=== PATIENT | female | born 1945 | race Caucasian/White ===

== ENCOUNTER → 2019-12-26 13:39 | Outpatient (CLI) | payer MEDICARE, OTHER, SELFPAY ==
--- NOTE | 2019-12-26 13:49 | XR_ITS ---
PROCEDURE: XR FOOT WT BEARING LT 3V CLINICAL INDICATION: pain COMPARISON: No exams were available for comparison FINDINGS: No fracture or dislocation. No lytic or blastic change. There is normal mineralization. There are moderate osteoarthritic changes at the 1st MTP joint. Mild osteoarthritis at the talonavicular and navicular cuneiform joint Other findings:Bony hypertrophy noted at the distal aspect of the 1st metatarsal. There is a small calcaneal spur. 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
--- NOTE | 2019-12-26 13:49 | XR_ITS ---
PROCEDURE: XR FOOT WT BEARING RT 3V CLINICAL INDICATION: pain Bunion COMPARISON: No exams were available for comparison FINDINGS: No fracture or dislocation. No lytic or blastic change. There is normal mineralization. There are severe osteoarthritic changes at the 1st metatarsophalangeal junction with loss of joint space osteosclerosis and osteophyte formation with mild hypertrophic changes at the distal aspect of the 1st metatarsal. Other findings:There is a small calcaneal spur. There are mild degenerative changes at the talonavicular and navicular cuneiform joint IMPRESSION: Severe osteoarthritis at the 1st MTP joint with bony hypertrophy Dictated by: Glenroy Glass MD 12/26/2019 17:36 Glenroy Glass MD in [place] 12/26/2019 17:36
== END ==
PROVIDERS: PCP Nurse Practitioner Family; Visit Provider Podiatrist
DX: M79.671 Pain in right foot (principal); M79.672 Pain in left foot
CPT/HCPCS: 73630

== ENCOUNTER → 2020-07-09 10:09 | Outpatient (POV) | payer MEDICARE, OTHER, SELFPAY ==
[2020-07-09 10:29] VITALS: BP 114/74; PULSE 63; RESP 20; TEMP 36.4; O2SAT 93; BMI 29.5
--- NOTE | 2020-07-09 16:00 | HMH.PMCON ---
Assessment and Plan (1) Postlaminectomy syndrome Status: Acute Category: Medical Code(s): M96.1 - Postlaminectomy syndrome, not elsewhere classified (2) Degenerative joint disease (DJD) of lumbar spine Status: Acute Category: Medical Code(s): M47.816 - Spondylosis without myelopathy or radiculopathy, lumbar region (3) Lumbar radiculopathy Status: Acute Category: Medical Code(s): M54.16 - Radiculopathy, lumbar region - Assessment and plan all Dx Assessment and Plan for all problems:: We will get some diagnostic imaging we will order a MRI of her lumbar spine to help determine pathology. We will follow up afterwards to move forward with the plan of care. Patient may be a candidate for injective therapy. I will follow-up with her after this reassess her symptoms at that time she has been instructed to call the office if she has any issues prior to her next appointment. Dr. Allan has reviewed this note and agrees with this plan of care. This note was dictated using voice recognition software and may contain errors or omissions HPI - Data of Consult Requesting Physician: Mayra Vicente APRN Primary Care Provider: Karoline Negron APRN - Consult Narrative Reason for consult: Back pain History of present illness: Ms. Storm is a 75 year old female who presents today for consultation regards to her low back and leg pain. Patient has low back and left leg pain for over 10 years now. She rates it a 10 out of 10 and states that it is impacting her every day movement and life. Patient has had multiple back surgeries in the past. Patient has had no recent MRI. Patient has increasing pain with all movement. She is on tramadol and gabapentin which does decrease her pain somewhat however she does have numbness and tingling in her left lower extremity that is not affected by this. She has tried and failed stretching therapies and has had no relief. CC: Mayra Vicente APRN [facility] History I have reviewed the patient's past medical history: Yes Medical History: Reports:: Hyperlipidemia, Hypertension Denies:: Cancer, Diabetes Mellitus Type 1, Diabetes Mellitus Type 2, Internal Pacemaker, Lung Disease, MRSA, Seizures *Have you ever received a pneumonia vaccine?: Yes *Have you received a flu vaccine this season?: Yes Other Medical History: Reports: Thyroid Disease Other Surgeries: Yes: Cholecystectomy, Hysterectomy-Total, Thyroidectomy, Other (lumbar back surgery x2). No: Pacemaker Amputation: No Fractures: No - *Social History Smoking Status: Current every day smoker Tobacco Type: cigarettes # Packs/Day (cigarettes): 1 Alcohol Intake: never *Occupational Status:: retired Housing: house Household Members: other *Travel in the last 8 weeks: None Family Hx:: Non-contributory Review of Systems - Review of Systems ROS General: no recent weight change, no fever, no sleep disturbances Respiratory: no cough, no shortness of air, no recurring pulmonary infections Cardiovascular/Peripheral Vascular: No chest pain, No palpitations, no edema, no shortness of breath. Gastrointestinal: no new onset incontinence, normal bowel movements reported Genitourinary: no new onset incontinence Musculoskeletal: Back pain, leg pain Psychiatric: normal mood/ affect Neurological: [denies new onset weakness in extremities], [denies new onset balance issues] Meds Home Medications Medication Instructions Recorded Confirmed Type Alendronate Sodium [Alendronate 35 mg PO WEEKLY 10/17/17 07/09/20 History 35mg Tablet] Aspirin 81 mg PO DAILY 10/17/17 07/09/20 History Atenolol/Chlorthalidone 1 each PO DAILY 10/17/17 07/09/20 History [Atenolol-Chlorthalidone 50-25] Gabapentin [Gabapentin 300mg Cap] 600 mg PO BID 10/17/17 07/09/20 History Simvastatin [Zocor] 20 mg PO DAILY 10/17/17 07/09/20 History cephalexin 250 mg capsule 250 mg PO DAILY 12/26/19 07/09/20 History diclofenac sodium 1 % topical gel 4 g TOPI
== END ==
PROVIDERS: PCP Nurse Practitioner Family; Visit Provider Clinical Nurse Specialist Family Health
DX: M96.1 Postlaminectomy syndrome, not elsewhere classified (principal); M47.816 Spondylosis without myelopathy or radiculopathy, lumbar region; M54.16 Radiculopathy, lumbar region
CPT/HCPCS: 99202; G0463

== ENCOUNTER → 2020-07-14 12:38 | Outpatient (CLI) | payer MEDICARE, OTHER, SELFPAY ==
--- NOTE | 2020-07-14 12:44 | MR_ITS ---
PROCEDURE: MR LUMBAR SPINE WO CON CLINICAL INDICATION: LBP DOWN LEFT HIP Pt c/o lbp radiating down the left hip. COMPARISON: No exams were available for comparison TECHNIQUE: Standard multiplanar multiecho sequences are performed without contrast. 3-D MIP and myelographic images are also rendered and reviewed FINDINGS: There is normal alignment. The spinal cord ends at L1 level. T10-T11: Minimal degenerative disc disease with minimal bulging disc. T12-L1: Minimal bulging disc L1-L2: Mild concentric bulging disc with mild degenerative disc disease. Anterior osteophytes are present at this level. There is mild bilateral lateral recess and foraminal narrowing. L2-L3: Degenerative disc disease with type 3 endplate changes. There is retrolisthesis of L2 by 5 mm with bulging disc and facet hypertrophic changes which are greater on the right resulting in moderate right lateral recess narrowing and moderate to severe bilateral foraminal. Endplate osteophytes are present with the bulging disc. L3-L4: Facet and ligamentum hypertrophy with mild bilateral foraminal narrowing. L4-5: Mild concentric bulging disc. There is 2 mm anterolisthesis of L4. There is severe ligamentum and facet hypertrophy with bilateral lateral recess narrowing which is greater on the right. There is a small left paracentral and foraminal disc osteophyte complex which does abut the left L5 nerve root. There is moderate to severe left-sided foraminal narrowing. L5-S1: Degenerative disc disease with mild retrolisthesis of L5 of 4-5 mm. There is bulging disc along with severe facet and ligamentum hypertrophic changes. There has been a prior laminotomy on the left at this level canal stenosis is present. There is severe bilateral lateral recess narrowing and severe bilateral foraminal narrowing from the facet hypertrophic change. No extruded herniated disc is evident. IMPRESSION: Abnormal MRI of the lumbar spine. There is multilevel lumbar spondylosis with degenerative disc disease, bulging disc, and facet and ligamentum hypertrophy with varying degrees of lateral recess and foraminal narrowing along with canal stenosis. Please see above for detailed description at each level. Dictated by: Glenroy Glass MD 07/16/2020 12:47 Glenroy Glass MD in [place] 07/16/2020 12:47
== END ==
PROVIDERS: PCP Nurse Practitioner Family; Visit Provider Clinical Nurse Specialist Family Health
DX: M54.5 Low back pain (principal)
CPT/HCPCS: 72148; 76376

== ENCOUNTER → 2020-07-20 10:11 | Outpatient (POV) | payer MEDICARE, OTHER, SELFPAY ==
[2020-07-20 10:42] VITALS: BP 132/71; PULSE 69; RESP 18; O2SAT 98; BMI 28.5
--- NOTE | 2020-07-20 11:18 | P.CONS_ITS ---
[facility] Pain Management SOAP Note Subjective:: Patient is a pleasant 75-year-old white female who presents today for follow-up after her lumbar MRI. Patient has quite a bit of pathology including degenerative disc disease, disc protrusions, and severe ligamentum and facet hypertrophy. Patient states that her pain is when she standing and walking. It is relieved by sitting and leaning forward she rates it a 9 out of 10. Patient is a potential candidate for minimally invasive lumbar decompression. Patient and I discussed epidural injections along with epidurogram to help determine if she will benefit from this therapy. She would like to move forward with that she is not on any anticoagulation therapy. She is quite active she is failed other conservative measures including over 6 months of medication management. ROS General: no recent weight change, no fever, no sleep disturbances Respiratory: no cough, no shortness of air, no recurring pulmonary infections Cardiovascular/Peripheral Vascular: No chest pain, No palpitations, no edema, no shortness of breath. Gastrointestinal: no new onset incontinence, normal bowel movements reported Genitourinary: no new onset incontinence Musculoskeletal: Back pain, leg pain Psychiatric: normal mood/ affect Neurological: Weakness bilateral lower extremities when standing and walking, [denies new onset balance issues] Objective:: Physical Exam General: Alert and oriented x3, no acute distress, pleasant and cooperative, [on room air] Lungs: Resps E/U, Symmetrical chest expansion, Eyes: PERRL Musculoskeletal: Flexion and extension of lumbar spine somewhat guarded secondary to pain, deep tendon reflexes normal, strength in upper and lower ext remities [5/5], [abnormal gait noted] Neurological: speech clear, 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 She has been instructed to call the office if she has any issues prior to her next appointment. I will follow-up with her afterwards reassess her symptoms at that time. Dr. Allan has reviewed this note and agrees with this plan of care. This note was dictated using voice recognition software and may contain errors or omissions [facility] History I have reviewed the patient's past medical history: Yes Medical History: Reports:: Hyperlipidemia, Hypertension Denies:: Cancer, Diabetes Mellitus Type 1, Diabetes Mellitus Type 2, Internal Pacemaker, Lung Disease, MRSA, Seizures *Have you ever received a pneumonia vaccine?: Yes *Have you received a flu vaccine this season?: Yes Other Medical History: Reports: Thyroid Disease Other Surgeries: Yes: Cholecystectomy, Hysterectomy-Total, Thyroidectomy, Other (lumbar back surgery x2). No: Pacemaker Amputation: No Fractures: No - *Social History Smoking Status: Current every day smoker Tobacco Type: cigarettes # Packs/Day (cigarettes): 1 Alcohol Intake: never *Occupational Status:: other Housing: house Household Members: other *Travel in the last 8 weeks: None Family Hx:: Non-contributory
== END ==
PROVIDERS: PCP Nurse Practitioner Family; Visit Provider Clinical Nurse Specialist Family Health
DX: M51.16 Intervertebral disc disorders with radiculopathy, lumbar region (principal); M96.1 Postlaminectomy syndrome, not elsewhere classified; M48.062 Spinal stenosis, lumbar region with neurogenic claudication
CPT/HCPCS: 99212; G0463

== ENCOUNTER 2020-07-31 11:39 | Day surgery (SDC) | payer MEDICARE, OTHER, SELFPAY ==
[2020-07-31 12:34] VITALS: BP 122/64; PULSE 73; RESP 20; O2SAT 94; BMI 28.3
--- NOTE | 2020-07-31 13:02 | HMH.PMPROC ---
- Procedure Date: 07/31/20 Time: 13:02 Anesthesiologist:: Cyrus Allan MD Complications:: None Pre-procedure Diagnosis:: Degenerative disc disease of lumbar spine with lumbar spinal stenosis and lumbar radicular symptoms with neurogenic claudication symptoms. Laminectomy syndrome lumbar spine Post-procedure Diagnosis:: Same Indications for Procedure:: The patient is a pleasant 75-year-old white female who we are treating for low back pain with lumbar radiculopathy symptoms and lumbar spinal stenosis with neurogenic claudication symptoms. She has increasing pain while standing and walking. Rest and leaning forward to relieve her pain symptoms. She does have lumbar spinal stenosis evident on MRI. We will do a lumbar epidural steroid injection with epidurogram to assess levels of stenosis and candidacy for minimally invasive lumbar decompression. Procedure Details:: Lumbar epidural steroid injection under fluoroscopy Informed consent was obtained and the risk and benefits of the procedure was explained to the patient. The patient was taken to the procedure room. The patient was placed prone on the procedure table. The patient was prepped and draped in sterile fashion. C-arm fluoroscopy was used to view the lumbar spine. Skin and subcutaneous tissues were anesthetized using lidocaine. I placed an 18-gauge epidural needle and advanced into the L4-L5 interspace using fluoroscopic guidance and [id number] to air. After confirmation of needle placement in the epidural space with dye I injected 2 mL of lidocaine 1.5% with Depo-Medrol 80 mg. Patient tolerated the procedure well with no complications. Plan and Disposition:: Based on epidurogram patient has had previous back surgery at L4-L5. I would like to hold off on doing the mild procedure until we see the results of the lumbar epidural steroid injection. She does have stenosis at 3 4 and L4-L5. We will follow-up with her and determine plan of treatment depending on efficacy of the lumbar epidural steroid injection.
[2020-07-31 13:12] VITALS: BP 135/78; BP 140/79; PULSE 89; RESP 18; O2SAT 98
[2020-07-31 13:20] VITALS: BP 131/65; PULSE 67; RESP 20; O2SAT 94
== END 2020-07-31 13:20 | disposition home or self-care (01) ==
LOC: SC.PAINP 11:41
PROVIDERS: PCP Nurse Practitioner Family; Visit Provider Anesthesiology
DX: M48.062 Spinal stenosis, lumbar region with neurogenic claudication (principal); M51.36 Other intervertebral disc degeneration, lumbar region; M96.1 Postlaminectomy syndrome, not elsewhere classified; E78.5 Hyperlipidemia, unspecified; I10 Essential (primary) hypertension
CPT/HCPCS: 62323; J1040; Q9966

== ENCOUNTER → 2020-08-27 11:10 | Outpatient (POV) | payer MEDICARE, OTHER, SELFPAY ==
[2020-08-27 11:52] VITALS: BP 132/71; PULSE 85; RESP 18; O2SAT 98; BMI 26.4
--- NOTE | 2020-08-27 12:25 | HMH.PAINSOAP ---
[facility] Pain Management SOAP Note Subjective:: Patient is a pleasant 75-year-old white female who presents today for follow-up after epidurogram. Patient was assessed for potential minimally invasive lumbar decompression. According to Dr. Nix note he would like to hold off doing a mild procedure. Patient did get 1 day relief with her epidural steroid injection. I discussed with her potentially finishing the course of 3 injections she is agreeable. Patient's tried and failed multiple therapies including medications, anti-inflammatories. Patient's pain is when she is standing or walking and it is alleviated by leaning forward and sitting down. ROS General: no recent weight change, no fever, no sleep disturbances Respiratory: no cough, no shortness of air, no recurring pulmonary infections Cardiovascular/Peripheral Vascular: No chest pain, No palpitations, no edema, no shortness of breath. Gastrointestinal: no new onset incontinence, normal bowel movements reported Genitourinary: no new onset incontinence Musculoskeletal: Back pain Psychiatric: normal mood/ affect Neurological: [denies new onset weakness in extremities], [denies new onset balance issues] Objective:: Physical Exam General: Alert and oriented x3, no acute distress, pleasant and cooperative, [on room air] Lungs: Resps E/U, Symmetrical chest expansion, Eyes: PERRL Musculoskeletal: Flexion and extension of lumbar spine somewhat guarded secondary to pain, deep tendon reflexes normal, strength in upper and lower extremities [5/5], antalgic gait noted Neurological: 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 We will complete her 3 epidural series. Patient's been instructed to call the office if she has any issues prior to her next appointment. Patient currently not on any anticoagulation therapy. Dr. Allan has reviewed this note and agrees with this plan of care. This note was dictated using voice recognition software and may contain errors or omissions [facility] History I have reviewed the patient's past medical history: Yes Medical History: Reports:: Hyperlipidemia, Hypertension Denies:: Cancer, Diabetes Mellitus Type 1, Diabetes Mellitus Type 2, Internal Pacemaker, Lung Disease, MRSA, Seizures *Have you ever received a pneumonia vaccine?: Yes *Have you received a flu vaccine this season?: Yes Other Medical History: Reports: Thyroid Disease Other Surgeries: Yes: Appendectomy, Cholecystectomy, Hysterectomy-Total, Thyroidectomy, Other (lumbar back surgery x2). No: Pacemaker Amputation: No Fractures: No - *Social History Smoking Status: Current every day smoker Tobacco Type: cigarettes # Packs/Day (cigarettes): 1 Alcohol Intake: never *Occupational Status:: other Housing: house Household Members: other *Travel in the last 8 weeks: None Family Hx:: Non-contributory
== END ==
PROVIDERS: PCP Nurse Practitioner Family; Visit Provider Clinical Nurse Specialist Family Health
DX: M51.16 Intervertebral disc disorders with radiculopathy, lumbar region (principal); M96.1 Postlaminectomy syndrome, not elsewhere classified; M48.062 Spinal stenosis, lumbar region with neurogenic claudication
CPT/HCPCS: 99212; G0463

== ENCOUNTER 2020-09-04 13:39 | Day surgery (SDC) | payer MEDICARE, OTHER, SELFPAY ==
[2020-09-04 13:55] VITALS: BP 99/40; PULSE 72; RESP 18; TEMP 37; O2SAT 93; BMI 28.3
[2020-09-04 14:27] VITALS: BP 128/88; BP 129/89; PULSE 74; PULSE 87; RESP 18; O2SAT 98
[2020-09-04 14:38] VITALS: BP 117/82; PULSE 70; RESP 20; O2SAT 93
--- NOTE | 2020-09-04 14:38 | HMH.PMPROC ---
- Procedure Date: 09/04/20 Time: 14:39 Anesthesiologist:: Cyrus Allan MD Complications:: None Pre-procedure Diagnosis:: Exam lumbar spine with lumbar radiculopathy symptoms and spinal stenosis Post-procedure Diagnosis:: Same Indications for Procedure:: Patient is a pleasant 75-year-old white female who we are treating for low back pain with lumbar radiculopathy symptoms. She did well for couple days after her last lumbar epidural steroid injection. Her pain is now back. She was very active during that period of time. She presents for repeat lumbar epidural steroid injection under fluoroscopy today. Procedure Details:: Informed consent was obtained and the risk and benefits of the procedure was explained to the patient. The patient was taken to the procedure room. The patient was placed prone on the procedure table. The patient was prepped and draped in sterile fashion. C-arm fluoroscopy was used to view the lumbar spine. Skin and subcutaneous tissues were anesthetized using lidocaine. I placed an 18-gauge epidural needle and advanced into the L4-L5 interspace using fluoroscopic guidance and [id number] to air. After confirmation of needle placement in the epidural space with dye I injected 2 mL of lidocaine 1.5% with Depo-Medrol 80 mg. Patient tolerated the procedure well with no complications. Plan and Disposition:: Follow-up with this patient in 2 weeks. Will reevaluate her symptoms at that time.
== END 2020-09-04 14:39 | disposition home or self-care (01) ==
LOC: SC.PAINP 13:40
PROVIDERS: PCP Nurse Practitioner Family; Visit Provider Anesthesiology
DX: M51.16 Intervertebral disc disorders with radiculopathy, lumbar region (principal); M48.00 Spinal stenosis, site unspecified; I10 Essential (primary) hypertension; E78.5 Hyperlipidemia, unspecified; Z72.0 Tobacco use; K21.9 Gastro-esophageal reflux disease without esophagitis; Z90.49 Acquired absence of other specified parts of digestive tract
CPT/HCPCS: 62323; J1040; Q9966

== ENCOUNTER 2020-09-25 10:38 | Day surgery (SDC) | payer MEDICARE, OTHER, SELFPAY ==
[2020-09-25 11:28] VITALS: BP 158/65; PULSE 62; RESP 18; TEMP 37; O2SAT 95; BMI 29.2
[2020-09-25 13:20] VITALS: BP 148/108; PULSE 64; RESP 18; O2SAT 96
[2020-09-25 13:24] VITALS: BP 142/72; PULSE 60; RESP 18; O2SAT 97
[2020-09-25 13:55] VITALS: BP 138/74; PULSE 60; RESP 18; O2SAT 98
--- NOTE | 2020-09-25 15:32 | P.PCN_ITS ---
- Procedure Date: 09/25/20 Time: 15:33 Anesthesiologist:: Mirta Zelaya MD Complications:: None Pre-procedure Diagnosis:: Degenerative disc disease, lumbar radiculopathy Post-procedure Diagnosis:: Same Indications for Procedure:: Patient is a very pleasant 75-year-old white female who presents today with low back pain with lumbar radiculopathy symptoms. She has had previous lumbar ep idural steroid injections in the past with adequate relief of her pain symptoms. She reports these injections have allowed her to be more active and functional. However, she notes that her pain has since returned. She presents today for repeat lumbar epidural steroid injection under fluoroscopy today Procedure Details:: Informed consent was obtained and the risk and benefits of the procedure was explained to the patient. The patient was taken to the procedure room. The patient was placed prone on the procedure table. The patient was prepped and draped in sterile fashion. C-arm fluoroscopy was used to view the lumbar spine. Skin and subcutaneous tissues were anesthetized using lidocaine. I placed an 18-gauge epidural needle and advanced into the L4-L5 interspace using fluoroscopic guidance and [id number] to air. After confirmation of needle placement in the epidural space with dye I injected 2 mL of lidocaine 1.5% with Depo-Medrol 80 mg. Patient tolerated the procedure well with no complications. Plan and Disposition:: Follow-up with this patient in 2 weeks. Will reevaluate her symptoms at that time.
== END 2020-09-25 13:56 | disposition home or self-care (01) ==
LOC: SC.PAINP 10:42
PROVIDERS: PCP Nurse Practitioner Family; Visit Provider Anesthesiology Pain Medicine
DX: M51.16 Intervertebral disc disorders with radiculopathy, lumbar region (principal); E07.9 Disorder of thyroid, unspecified; E78.5 Hyperlipidemia, unspecified; I10 Essential (primary) hypertension
CPT/HCPCS: 62323; J1040; Q9966

== ENCOUNTER → 2020-10-19 10:58 | Outpatient (POV) | payer MEDICARE, OTHER, SELFPAY ==
[2020-10-19 11:24] VITALS: BP 107/54; PULSE 67; RESP 18; O2SAT 94; BMI 29.5
--- NOTE | 2020-10-19 12:23 | HMH.PAINSOAP ---
[facility] Pain Management SOAP Note Subjective:: Patient is a pleasant 75-year-old white female who presents today for follow-up after a lumbar epidural steroid injection. Patient is being treated for degenerative disc disease lumbar spine with lumbar radicular symptoms. She says that she got approximately 60% relief with her last injection. She says that she did, however, get better relief with her second injection that was performed per Dr. Smith. Her last injection was done with Dr. Zelaya. Patient says that she would prefer to have her injections with Dr. Smith only in the future. She has pain in her low back with radiation into her lower extremities. She says following her second injection she had no pain until 3 months later. Her last injection was on 09/25/2020. Patient says that her pain is tolerable at this time at a 4 out of 10. She is continue with home stretching and has tried and failed physical therapy for greater than 6 weeks and anti-inflammatories. She would like to follow-up at the end of November for further evaluation of her pain. She does not want to do any further injective therapy at this time. Review of Systems General: No recent weight changes, no fever, no sleep disturbances Respiratory: No cough, no shortness of air, no recurring pulmonary infections Cardiovascular/peripheral vascular: No chest pain, no palpitations, no edema, no shortness of breath Gastrointestinal: No new onset incontinence, normal bowel movements reported Genitourinary: No new onset incontinence Musculoskeletal: Intermittent low back pain with radiation into lower extremities Psychiatric: Normal mood/affect Neurological: [Denies weakness in extremities], [denies balance issues] Objective:: Physical exam General: Alert and oriented x3, no acute distress, pleasant and cooperative, [on room air] Lungs: Respirations even and unlabored, symmetrical chest expansion Eyes: PERRL Musculoskeletal: Flexion and extension of [] lumbar spine somewhat guarded secondary to pain, deep tendon reflexes normal, strength in upper and lower extremities [5/5], [abnormal gait noted] Neurological: Speech clear, environmental services specialist equal, no gross sensory deficit Assessment:: Degenerative disc disease lumbar spine with lumbar radiculopathy symptoms Plan:: Patient is doing better overall at this time. She does not want to proceed with further injective therapy until the end of November to discuss a further plan of care. She is asked that she only have injections with Dr. Smith in the future. Patient has been instructed to contact the clinic with any concerns before the next appointment. Dr. Allan has reviewed this note and agrees with this plan of care. This note was dictated using voice recognition software and make contain errors or omissions. [facility] History I have reviewed the patient's past medical history: Yes Medical History: Reports:: Hyperlipidemia, Hypertension Denies:: Cancer, Diabetes Mellitus Type 1, Diabetes Mellitus Type 2, Internal Pacemaker, Lung Disease, MRSA, Seizures *Have you ever received a pneumonia vaccine?: Yes *Have you received a flu vaccine this season?: Yes Other Medical History: Reports: Thyroid Disease Other Surgeries: Yes: Appendectomy, Cholecystectomy, Hysterectomy-Total, Thyroidectomy (parathyroid), Other (lumbar back surgery x2). No: Pacemaker Amputation: No Fractures: No - *Social History Smoking Status: Current every day smoker Tobacco Type: cigarettes # Packs/Day (cigarettes): 1 Alcohol Intake: never *Occupational Status:: retired Housing: house Household Members: other *Travel in the last 8 weeks: None Family Hx:: Non-contributory
== END ==
PROVIDERS: PCP Nurse Practitioner Family; Visit Provider Clinical Nurse Specialist Family Health
DX: M51.16 Intervertebral disc disorders with radiculopathy, lumbar region (principal)
CPT/HCPCS: 99212; G0463

== ENCOUNTER → 2020-12-17 11:01 | Outpatient (POV) | payer MEDICARE, OTHER, SELFPAY ==
[2020-12-17 11:11] VITALS: BP 125/71; PULSE 71; RESP 18; O2SAT 95; BMI 27.9
--- NOTE | 2020-12-17 13:08 | HMH.PAINSOAP ---
[facility] Pain Management SOAP Note Subjective:: Patient is a 75-year-old white female who presents today for follow-up. Patient is being treated for degenerative disc disease lumbar spine with lumbar radiculopathy symptoms. Patient has had 2 lumbar epidural steroid injections. The patient reports today that she did not get much relief from these injections, however, in the past patient did report to have gotten up to 60% relief. Today, she is complaining of low back pain with radiation into her left lower extremity and to the arch of her left foot. She says she has a drawing sensation of her left foot as well. She does not feel she is getting any significant relief. Patient was given educational information at her last visit regarding possible spinal cord stimulation for her chronic pain. The patient has tried and failed physical therapy for greater than 6 weeks and continues with home stretching. She has tried anti-inflammatories in the past as well. She is currently on tramadol and gabapentin that is prescribed to her by her primary care provider. She says this gives her short-term relief, however, it does not give her more than 20 to 30% relief. Patient is interested in spinal cord stimulation, however, she would like to discuss this further with her family before proceeding. The patient's pain today is a 7 out of 10. Review of Systems General: No recent weight changes, no fever, no sleep disturbances Respiratory: No cough, no shortness of air, no recurring pulmonary infections Cardiovascular/peripheral vascular: No chest pain, no palpitations, no edema, no shortness of breath Gastrointestinal: No new onset incontinence, normal bowel movements reported Genitourinary: No new onset incontinence Musculoskeletal: Low back pain with radiation into left leg and left foot Psychiatric: [Normal mood/affect] Neurological: Weakness in left lower extremity Objective:: Physical exam General: Alert and oriented x3, no acute distress, pleasant and cooperative, [on room air] Lungs: Respirations even and unlabored, symmetrical chest expansion Eyes: PERRL Musculoskeletal: Flexion and extension of [lumbar spine] somewhat guarded secondary to pain, strength in upper and lower extremities [5/5], [antalgic gait noted] Neurological: Speech clear, [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 She was once again given educational information regarding spinal cord stimulation she would like to discuss this with her family and contact the clinic if she does wish to proceed with a psychological evaluation. If the patient does contact the clinic, we will schedule her for the psychological evaluation see her back afterwards to discuss further plan of care. Patient has been instructed to contact the clinic with any concerns before the next appointment. Dr. Allan has reviewed this note and agrees with this plan of care. This note was dictated using voice recognition software and make contain errors or omissions. [facility] History I have reviewed the patient's past medical history: Yes Medical History: Reports:: Hyperlipidemia, Hypertension Denies:: Cancer, Diabetes Mellitus Type 1, Diabetes Mellitus Type 2, Internal Pacemaker, Lung Disease, MRSA, Seizures *Have you ever received a pneumonia vaccine?: Yes *Have you received a flu vaccine this season?: Yes Other Medical History: Reports: Thyroid Disease Other Surgeries: Yes: Appendectomy, Cholecystectomy, Hysterectomy-Total, Thyroidectomy (parathyroid), Other (lumbar back surgery x2). No: Pacemaker Amputation: No Fractures: No - *Social History Smoking Status: Current every day smoker Tobacco Type: cigarettes # Packs/Day (cigarettes): 1 Alcohol Intake: never *Occupational Status:: unemployed Housing: house Household Members: other *Travel in the [facility]
== END ==
PROVIDERS: Visit Provider Clinical Nurse Specialist Family Health
DX: M51.16 Intervertebral disc disorders with radiculopathy, lumbar region (principal)
CPT/HCPCS: 99212; G0463

== ENCOUNTER 2022-04-19 13:09 | Emergency (ER) | payer MEDICARE, OTHER, SELFPAY ==
[2022-04-19 13:30] VITALS: BP 132/60; PULSE 77; RESP 21; TEMP 36.9; O2SAT 94; BMI 27.7
--- NOTE | 2022-04-19 13:58 | EXP.UTC ---
Discharge Plan Disposition Patient Disposition: Home, Self-Care Condition: Good Prescriptions Prescriptions: New doxycycline hyclate 100 mg capsule 100 mg PO BID 7 Days Qty: 14 0RF benzonatate 100 mg capsule 100 mg PO TID PRN (Reason: cough) Qty: 30 0RF No Action tramadol 50 mg tablet 1 - 2 tab PO DAILY PRN (Reason: pain) cephalexin 250 mg capsule 250 mg PO DAILY gabapentin 300 MG capsule 600 mg PO BID aspirin 81 MG tablet,chewable 81 mg PO DAILY atenolol-chlorthalidone 1 EACH tablet 1 each PO DAILY alendronate 35 MG tablet 35 mg PO WEEKLY simvastatin 20 MG tablet 20 mg PO DAILY potassium chloride 20 MEQ tablet extended release 20 meq PO DAILY Referrals Follow up/Referrals: Sunil Denise MD [Primary Care Provider] - See instructions Activity Restrictions/Add. Instructions Additional Instructions/Restrictions: *Monitor Temp, Over the counter Motrin or Tylenol as directed/as needed Tylenol every 4 hours and Motrin every 6 hours (as long as your family doctor has told you that you can take it) for fever or pain. and straight to ER if unable to lower temp less than 101.0 after medication given *Warm salt water gargles may help to soothe the throat *Throat Lozenges? *Warm fluids like tea with honey may help to soothe the throat? *Sleep elevated *Humidifier/Vaporizer Follow up IMMEDIATELY for new or worsening symptoms or no Noticeable improvement over the next 48-72 hours. 911 for difficulty breathing or swallowing You were tested for today for COVID19 your test result should be back in the next 24-48 hours, you may check your results on the [facility] Clinical Impressions Clinical Impression: Sinusitis Instructions Patient Instructions: DI for Sinusitis, Sinusitis Discharge ED Provider: Dianne Guy [facility] [place] HPI General Stated complaint: runny nose, sob, [place] Mode of Arrival: Ambulatory Source of Information: Patient Limitations: No Limitations Time Seen by Provider: 04/19/22 13:58 Description of Symptoms (Recalled from Triage Doc. by RN): PATIENT C/O SORE THROAT, COUGH, AND CONGESTION X 1 WEEK. REPORTS COVID EXPOSURE HEENT Symptoms (Recalled from RN notes): Yes Resp Symptoms (Recalled from RN notes): Yes Skin Symptoms (Recalled from RN notes): No MS Symptoms (Recalled from RN notes): No Functional Status (Recalled from RN notes): WNL History of Present Illness Provider Complaint: Patient states that she has been having cough, sinus congestion and pressure, and sore throat for about a week States that she has been around someone that was positive for COVID yesterday but she was already sick States that she wanted to get checked before it moved into her chest Related Data Home Medications Medication Instructions Recorded Confirmed alendronate 35 mg tablet 35 mg PO WEEKLY Osteoporosis 10/17/17 09/25/20 aspirin 81 mg chewable tablet 81 mg PO DAILY prevent 10/17/17 09/25/20 atenolol 50 mg-chlorthalidone 25 1 each PO DAILY bp 10/17/17 09/25/20 mg tablet gabapentin 300 mg capsule 600 mg PO BID back pain 10/17/17 09/25/20 simvastatin 20 mg tablet 20 mg PO DAILY Cholesterol 10/17/17 09/25/20 cephalexin 250 mg capsule 250 mg PO DAILY infection 12/26/19 09/25/20 prevention tramadol 50 mg tablet 1 - 2 tab PO DAILY PRN pain 12/26/19 09/25/20 potassium chloride 20 mEq 20 meq PO DAILY Supplement 07/09/20 09/25/20 tablet,extended release Previous Rx's Medication Instructions Recorded benzonatate 100 mg capsule 100 mg PO TID PRN cough #30 caps 04/19/22 doxycycline hyclate 100 mg capsule 100 mg PO BID 7 days #14 caps 04/19/22 Allergies Allergy/AdvReac Type Severity Reaction Status Date / Time No Known Allergies Allergy Verified 09/25/20 11:51 Worker's Comp Is this a Worker's Comp case?: No [facility] Disclaimer: The information contained in this section may have been updated after the
[2022-04-19 14:03] VITALS: BP 132/60; PULSE 77; RESP 21; TEMP 36.9; O2SAT 96
== END 2022-04-19 14:20 | disposition home or self-care (01) ==
PROVIDERS: Emergency Provider Nurse Practitioner; PCP Emergency Medicine
DX: U07.1 COVID-19 (principal); J32.9 Chronic sinusitis, unspecified
CPT/HCPCS: 99212; C9803; G0463; U0003; U0005

== ENCOUNTER 2024-07-09 06:34 | Day surgery (SDC) | payer MEDICARE, OTHER, SELFPAY ==
[2024-07-05 13:45] VITALS: BMI 21.9
[2024-07-09] VITALS (7 sets, daily range): BP systolic 137–166; BP diastolic 68–93; PULSE 62–77; RESP 16–18; TEMP 36.2–36.6; O2SAT 96–97
[2024-07-09] MEDS: PHENYLEPHRINE 2.5% OPHTH SOLN 2ML OP ×3 (07:25→07:40)
[2024-07-09] MEDS: CYCLOPENTOLATE 2% OPHTH SOLN 2ML BOTTLE OP ×3 (07:25→07:40)
[2024-07-09] MEDS: TETRACAINE 0.5% OPTH SOL 15ML OP ×3 (07:25→07:40)
[2024-07-09] MEDS: SODIUM CHLORIDE 0.9% 10ML FLUSH SYRINGE 10 ML IV (08:12)
[2024-07-09] MEDS: MIDAZOLAM 2MG/2ML VIAL 1 MG IV (08:12)
[2024-07-09] MEDS: TIMOLOL 0.5% OPTH SOLN 5ML OP (08:21)
[2024-07-09] MEDS: LIDOCAINE 1% PF 2ML AMPULE 2 ML IJ (08:21)
[2024-07-09] MEDS: TRI-MOXI 15MG/1MG/ML 1ML OPHTH VIAL 1 ML OP (08:22)
--- NOTE | 2024-07-09 11:35 | HMH.PROCNOTE ---
[facility] Procedure Note Date: 07/09/24 Time: 11:35 Procedure Note:: Preoperative Diagnosis: Cataract combined NS Cortical Complex [Left] Eye Postop diagnosis: same Operation: Microscopic phacoemulsification with intraocular lens implant [Left] Eye Specimen: None Blood Loss: None The patient was examined in the office with a complaint of poor vision in the [left] eye. The patient reports that this interferes with ADLs such as reading, watching TV and/or driving or the vision is like looking through a foggy haze and is very troubling. The patient was examined and found to have a visually significant cataract with best corrected vision of [20/400] by refraction and/or glare testing. Treatment options, risks and benefits were explained and the patient elected to have cataract surgery in an attempt to improve their vision. The patient had the eye anesthetized with topical tetracaine, the eye ways prepped and draped in the usual fashion for cataract surgery. A paracentesis and a temporal keratotomy were made. 0.2cc of 1% lidocaine PF was placed into the anterior chamber. And aqueous/viscoelastic exchange was done and a 360 degree capsulorexis was performed. Through hydrodissection and delineation with BSS on a cannula was done. The lens nucleus was phecoemulsified with CDE of [9.83]. Residual cortical material was removed using automated I&A The capsular bag was deepened with viscoelastica and a PCIOL was placed in the capsular bag with good centration and stability. Residual viscoelastic was removed using automated I&A. The keratotomy incision was hydrated with BSS on a cannula. The wound were checked and found to be water tight. IOP was checked digitally and adjusted as needed so as not to be too high. 1 drop of timolol 0.5%, ofloxacin, prednisolone acetate and ketorolac was instilled and eye shield taped over the eye. The patient was taken to recovery in good condition and will be seen postoperatively.
--- NOTE | 2024-07-09 11:36 | HMH.PROCNOTE ---
[facility] Procedure Note Date: 07/09/24 Time: 11:37 Procedure Note:: Preoperative Diagnosis: Cataract combined NS Cortical Complex [Left] Eye Postop diagnosis: same Operation: Complex Microscopic phacoemulsification with intraocular lens implant [Left] Eye Specimen: None Blood Loss: None The patient was examined in the office with a complaint of poor vision in the [left] eye. The patient reports that this interferes with ADLs such as reading, watching TV and/or driving or the vision is like looking through a foggy haze and is very troubling. The patient was examined and found to have a visually significant cataract with best corrected vision of [20/400] by refraction and/or glare testing. Treatment options, risks and benefits were explained and the patient elected to have cataract surgery in an attempt to improve their vision. The patient had the eye anesthetized with topical tetracaine, the eye ways prepped and draped in the usual fashion for cataract surgery. A paracentesis and a temporal keratotomy were made. 0.2cc of 1% lidocaine PF was placed into the anterior chamber. The pupil was poorly dilated makimng visualazation poor. The anterior chamber was deepened with viscoelastic and a 6.25mm diameter malyugin ring was placed to expand and stabilize the pupil. The chamber was refilled with viscoelastic and a 360 degree capsulorexis was performed. Thorough hydrodissection and delineation with BSS on a cannula was done. The lens nucleus was phacoemulsified with CDE of [8.93]. Residual cortical material was removed using automated I&A The capsular bag was deepened with viscoelastica and a PCIOL was placed in the capsular bag with good centration and stability. Residual viscoelastic was removed using automated I&A. The keratotomy incision was hydrated with BSS on a cannula. The wound were checked and found to be water tight. IOP was checked digitally and adjusted as needed so as not to be too high. 1 drop of timolol 0.5%, ofloxacin, prednisolone acetate and ketorolac was instilled and eye shield taped over the eye. The patient was taken to recovery in good condition and will be seen postoperatively.
== END 2024-07-09 08:43 | disposition home or self-care (01) ==
PROVIDERS: PCP Emergency Medicine; Visit Provider Ophthalmology
PROC: (CPT 66984; principal; 2024-07-09 08:00)
DX: H25.012 Cortical age-related cataract, left eye (principal)
CPT/HCPCS: 66984; J2250; V2632

== ENCOUNTER 2024-07-23 06:35 | Day surgery (SDC) | payer MEDICARE, OTHER, SELFPAY ==
[2024-07-19 11:31] VITALS: BMI 27.8
[2024-07-23] VITALS (8 sets, daily range): BP systolic 140–170; BP diastolic 65–95; PULSE 68–78; RESP 17–18; TEMP 36.6; O2SAT 95–97
[2024-07-23] MEDS: TETRACAINE 0.5% OPTH SOL 15ML OP ×3 (07:22)
[2024-07-23] MEDS: PHENYLEPHRINE 2.5% OPHTH SOLN 2ML OP ×3 (07:23)
[2024-07-23] MEDS: CYCLOPENTOLATE 2% OPHTH SOLN 2ML BOTTLE OP ×3 (07:23→07:24)
[2024-07-23] MEDS: MIDAZOLAM 2MG/2ML VIAL 1 MG IV (08:12)
[2024-07-23] MEDS: SODIUM CHLORIDE 0.9% 10ML FLUSH SYRINGE 10 ML IV (08:12)
[2024-07-23] MEDS: LIDOCAINE 1% PF 2ML AMPULE 2 ML IJ (08:22)
[2024-07-23] MEDS: TIMOLOL 0.5% OPTH SOLN 5ML OP (08:22)
[2024-07-23] MEDS: TRI-MOXI 15MG/1MG/ML 1ML OPHTH VIAL 1 ML OP (08:23)
--- NOTE | 2024-07-23 11:36 | HMH.PROCNOTE ---
[facility] Procedure Note Date: 07/23/24 Time: 11:36 Procedure Note:: Preoperative Diagnosis: Cataract combined NS Cortical Complex [Right] Eye Postop diagnosis: same Operation: Microscopic phacoemulsification with intraocular lens implant [Right] Eye Specimen: None Blood Loss: None The patient was examined in the office with a complaint of poor vision in the [right] eye. The patient reports that this interferes with ADLs such as reading, watching TV and/or driving or the vision is like looking through a foggy haze and is very troubling. The patient was examined and found to have a visually significant cataract with best corrected vision of [20/400] by refraction and/or glare testing. Treatment options, risks and benefits were explained and the patient elected to have cataract surgery in an attempt to improve their vision. The patient had the eye anesthetized with topical tetracaine, the eye ways prepped and draped in the usual fashion for cataract surgery. A paracentesis and a temporal keratotomy were made. 0.2cc of 1% lidocaine PF was placed into the anterior chamber. And aqueous/viscoelastic exchange was done and a 360 degree capsulorexis was performed. Through hydrodissection and delineation with BSS on a cannula was done. The lens nucleus was phecoemulsified with CDE of [7.01]. Residual cortical material was removed using automated I&A The capsular bag was deepened with viscoelastica and a PCIOL was placed in the capsular bag with good centration and stability. Residual viscoelastic was removed using automated I&A. The keratotomy incision was hydrated with BSS on a cannula. The wound were checked and found to be water tight. IOP was checked digitally and adjusted as needed so as not to be too high. 1 drop of timolol 0.5%, ofloxacin, prednisolone acetate and ketorolac was instilled and eye shield taped over the eye. The patient was taken to recovery in good condition and will be seen postoperatively.
== END 2024-07-23 08:55 | disposition home or self-care (01) ==
LOC: OR 06:37
PROVIDERS: PCP Emergency Medicine; Visit Provider Ophthalmology
PROC: (CPT 66984; principal; 2024-07-23 08:00)
DX: H25.011 Cortical age-related cataract, right eye (principal)
CPT/HCPCS: 66984; J2250; V2632